=== PATIENT | female | born 1945 | race Caucasian/White ===

== ENCOUNTER → 2018-01-02 | Outpatient (CLI) | payer OTHER ==
[~2018-01-02] MED LIST: ACETAMINOPHEN325 M1 PO; ALENDRONATE SOD70 MG PO; AMLODIPINE BESY10 MG PO; ASPIRIN81 M2 PO; ATENOLOL 50 MG50 M1 PO; AUGMENTIN 875875 MG PO; AZITHROMYCIN 2250 MG PO; BENTYL 10 MG CA10 M1 PO; BENTYL 20 MG TA20 M1 PO; CELEBREX 200 M200 M1 PO; CLARITIN10 MG PO; HYDROXYZINE HCL10 M1 PO; LEVAQUIN 500 M500 M1 PO; LEVAQUIN 750 M750 MG PO; LISINOPRIL20 MG PO; MUCINEX600 MG PO; NASAL MIST126 ML NASAL; PRILOSEC 10MG C10 M1 PO; PRILOSEC 20 MG20 MG PO; PRILOSEC20 MG PO; PROAIR HFA8.5 GM INH; TENORMIN50 MG PO; TESSALON PERLE100 MG PO; UNICOMPLEX M TA1 TA1 PO; VITAMIN D250000 UNIT PO; VITAMIN D3400 UNIT PO
== END ==
LOC: RAD 10-09 11:12
DX: R06.00 Dyspnea, unspecified (principal); G47.33 Obstructive sleep apnea (adult) (pediatric)